=== PATIENT | female | born 1940 | race Caucasian/White ===

== ENCOUNTER 2017-03-30 11:36 | Emergency (ER) | payer MEDICARE, BC ==
--- NOTE | ~2017-03-30 | CR253 ---
[facility] A Service of [facility] RADIOLOGY TEXT RESULTS PATIENT: BERTHA LEIVA LOCATION: SED : 38 UNIT #: [id number] AGE: [address]: RHEA MENDOZA SEX: F ORDER DR: [id number] [address] [address] [id number] MR#: [id number] Acc #: [id number] NAME: BERTHA LEIVA : 1940 SEX: F STUDY DATE/TIME: 03/30/2017 UNIT: SED ROOM: STUDY DESCRIPTION: CR Tibia and Fibula 2 Views Rt Attending Physician: Rhea Mendoza Aprn Ordering Physician: Rhea Mendoza Aprn Primary Care Physician: Hanh Bacon M.D. MEDICAL IMAGING REPORT This report is preliminary unless electronic signature is present. EXAM Right tibia and fibula 03/30/2017 1312 hours. HISTORY Patient suffered trauma to the distal lower leg anteriorly 2 weeks ago with pain, swelling and redness for 2 weeks. COMPARISON Right knee film 07/18/2015 FINDINGS AP and lateral views of the tibia and fibula are performed. There is no definite fracture seen. There is a small area of focal periosteal thickening along the lateral shaft of the tibia, just beyond the mid tibia level, which could represent healing response to recent subacute incomplete fracture. There is mild overlying soft tissue swelling. IMPRESSION No definite fracture lucency is seen. There is a small area of focal periosteal thickening along the lateral cortex of the tibia just beyond the mid tibial level with some overlying edema. This could represent healing response to an incomplete or stress type fracture. STAT * RESULT Dictated by... Christine Adair M.D. THIS IS AN ELECTRONICALLY VERIFIED REPORT Christine Adair M.D. at 03/30/2017 2:31 PM ROGER/heather [facility] A Service of [facility] RADIOLOGY TEXT RESULTS PATIENT: BERTHA LEIVA [place] [facility] [place] UNIT #: [id number] AGE: [address]: RHEA MENDOZA SEX: F ORDER DR: TD: 03/30/2017 13:40 JOB #: [id number] MEDICAL IMAGING REPORT Page 1 of 1
[~2017-03-30 11:36] MED LIST: ALLERGY RELIEF10 M1 PO; ALPRAZOLAM; ALPRAZOLAM PO; AMLODIPINE BESY10 MG PO; ASPIRIN PO; ASPIRIN81 M2 PO; ATENOLOL PO; BACLOFEN10 MG PO; CELEBREX; CLARITIN10 M2 PO; COUMADIN PO; COUMADIN4 MG PO; COUMADIN6 MG PO; CRESTOR PO; CRESTOR40 MG PO; DARVOCET-N 1001 TAB; FISH OIL 1,0001 CA2 PO; FUROSEMIDE40 MG PO; GLUCOTROL PO; HYDRALAZINE HCL25 MG PO; HYDROCODON-ACE1 EAC7 PO; HYDROCODONE-A1 UDTA1 PO; HYDROCODONE/APA1 T16 PO; IMDUR PO; KEPPRA1000 MG PO; LASIX PO; LIPITOR80 MG PO; LISINOPRIL20 MG PO; LOPRESSOR PO; LORTAB 5-325 M1 EACH PO; LORTAB 7.5-5001 TAB; METOPROLOL TAR100 MG PO; MULTI-VITAMIN1 TAB; NAPROXEN250 MG PO; NITROSTAT0.4 MG SL; NORVASC; NORVASC PO; NORVASC10 MG PO; OMEPRAZOLE20 M1 PO; PRILOSEC PO; PRILOSEC20 MG PO; PRINIVIL40 MG PO; REQUIP0.5 MG PO; RESTASIS32 EA OP; VENLAFAXINE HCL75 M2 PO; VITAMIN D50000 UNIT PO; ZESTRIL40 MG PO; ZOLOFT PO; ZOLOFT100 MG PO
[2017-03-30] MEDS ORDERED: BAYER CHEWABLE81 MG PO (11:54)
[2017-03-30] MEDS ORDERED: HYDROCODON-ACE1 EAC7 PO (11:54)
[2017-03-30] MEDS ORDERED: ATORVASTATIN CA80 MG PO (11:54)
[2017-03-30] MEDS ORDERED: BACLOFEN10 MG PO (11:54)
[2017-03-30] MEDS ORDERED: ALPRAZOLAM0.25 MG PO (11:54)
[2017-03-30] MEDS ORDERED: OMEPRAZOLE20 M1 PO (11:55)
[2017-03-30] MEDS ORDERED: METOPROLOL TAR100 MG PO (11:55)
[2017-03-30] MEDS ORDERED: PHENERGAN25 M1 PO (11:56)
[2017-03-30] MEDS ORDERED: REQUIP0.5 MG PO (11:56)
[2017-03-30] MEDS ORDERED: ZETIA PO (11:57)
[2017-03-30] MEDS ORDERED: ZYRTEC10 M1 PO (11:57)
[2017-03-30] MEDS ORDERED: VENLAFAXINE HCL75 M2 PO (11:57)
== END 2017-03-30 15:03 | disposition home or self-care (01) ==
LOC: SED 11:36
DX: S80.11XA Contusion of right lower leg, initial encounter (principal); E11.9 Type 2 diabetes mellitus without complications; E78.5 Hyperlipidemia, unspecified; I10 Essential (primary) hypertension; I25.2 Old myocardial infarction; Z90.710 Acquired absence of both cervix and uterus; Z90.89 Acquired absence of other organs; Z95.1 Presence of aortocoronary bypass graft; Z79.84 Long term (current) use of oral hypoglycemic drugs; Z79.01 Long term (current) use of anticoagulants; Z79.82 Long term (current) use of aspirin; Z79.899 Other long term (current) drug therapy; X58.XXXA Exposure to other specified factors, initial encounter
CPT/HCPCS: 73590; 99283